=== PATIENT | female | born 1990 | race American Indian/Alaskan Native ===

== ENCOUNTER 2020-07-24 09:51 | Emergency (ER) | payer SELFPAY ==
[2020-07-24 10:13] VITALS: BP 124/64
--- NOTE | 2020-07-24 10:13 | Emergency Department Report ---
Blank Doc - Documentation Documentation: 30-year-old female that presents with vaginal itching and burning. This initial assessment/diagnostic orders/clinical plan/treatment(s) is/are subject to change based on patient's health status, clinical progression and re- assessment by fellow clinical providers in the ED. Further treatment and workup at subsequent clinical providers discretion. Patient/guardians urged not to elope from the ED as their condition may be serious if not clinically assessed and managed. Initial orders include: 1- Patient sent to [facility] for further evaluation and treatment 2- UA 3- pelvic exam
[2020-07-24 11:12] LABS: Bacteria,Urine 1+ /HPF (Negative); Bilirubin,Urine NEG (Negative); Blood,Urine NEG (Negative); Color,Urine Yellow (Yellow); Mucus,Urine 3+ /HPF; Protein,Urine <15 mg/dL mg/dL (Negative); Urobilinogen,Urine < 2.0 mg/dL (<2.0)
[2020-07-24 11:14] LABS: HCG Qualitative,Urine Negative (Negative)
== END 2020-07-24 12:10 ==
LOC: ED 09:51
DX: Z53.21 Procedure and treatment not carried out due to patient leaving prior to being seen by health care provider (principal)
CPT/HCPCS: 81001; 81025

== ENCOUNTER 2022-03-06 22:13 | Emergency (ER) | payer SELFPAY ==
[2022-03-06 22:43] VITALS: BP 118/63
[2022-03-06] MEDS ORDERED: ASPIRIN 325 MG TAB PO ONE (22:45)
[2022-03-07 00:24] LABS: Basophils % (Auto) 0.3 % (0.0-1.8); Eosinophils # (Auto) 0.1 K/mm3 (0.0-0.4); Eosinophils % (Auto) 1.7 % (0.0-4.3); Hematocrit 34.6 % (30.3-42.9); Hemoglobin 11.3 gm/dl (10.1-14.3); Lymphocytes # (Auto) 2.6 K/mm3 (1.2-5.4); Lymphocytes % (Auto) 38.2 % (13.4-35.0); Mean Corpuscular HGB Conc 33 % (30-34); Mean Corpuscular Volume 84 fl (79-97); Monocytes # (Auto) 0.5 K/mm3 (0.0-0.8); Monocytes % (Auto) 7.6 % (0.0-7.3); Platelet Count 235 K/mm3 (140-440); Red Blood Count 4.13 M/mm3 (3.65-5.03); Red Cell Distribution Width 12.4 % (13.2-15.2)
[2022-03-07 00:29] LABS: Alanine Aminotransferase 26 units/L (7-56); Albumin 4.4 g/dL (3.9-5); BUN/Creatinine Ratio 11; Blood Urea Nitrogen 9 mg/dL (7-17); Calcium 9.1 mg/dL (8.4-10.2); Hemolysis Index 1
--- NOTE | 2022-03-08 13:40 | Electrocardiograph Report ---
[facility] Test Date: 2022-03-06 Test Time: 22:24:30 Pat Name: MAKAYLA VUONG Department: Room: Gender: F Casey Saw Operator: [place] : 1990 Requested By: AMY LACEY Order Number: [id number] Reading MD: Anders Meléndez Measurements Intervals [place] Rate: 95 P: 67 W[place]: 160 QRS: 48 QRSD: 81 T: 53 QT: 364 QTc: 458 Interpretive Statements Sinus rhythm No previous ECG available for comparison Electronically Signed On 03-08-2022 13:39:46 EDT by Anders Meléndez
== END 2022-03-07 06:06 | disposition left against medical advice (07) ==
LOC: ED 22:13
DX: R07.9 Chest pain, unspecified (principal); Z53.21 Procedure and treatment not carried out due to patient leaving prior to being seen by health care provider
CPT/HCPCS: 36415; 80053; 84484; 84703; 85025; 93005